=== PATIENT | male | born 1995 | race African-American/Black ===

== ENCOUNTER 2023-10-16 12:03 | Emergency (ER) | payer OTHER ==
[2023-10-16 12:21] VITALS: O2SAT 98
--- NOTE | 2023-10-16 12:27 | ED Physician Documentation ---
History of Present Illness - Stated complaint Stated Complaint: SHOCKED BY ELECTRICITY - Chief complaint Chief Complaint: Burn - History obtained from History obtained from: Patient - Additonal information Additional information: He was working on a growler and got shocked by an electric component to the left hand. He is right-hand dominant. He has no pain or chest pain or syncope. He does say that his arm is tingly. PD PAST MEDICAL HISTORY - Past Medical History Past Medical History: Yes Cardiovascular: None Respiratory: None Neuro: None Endocrine/Autoimmune: None GI: None : None HEENT: None Psych: Anxiety Musculoskeletal: None Derm: None - Past Surgical History Past Surgical History: No - Present Medications Home Medications: Ambulatory Orders Medication Instructions Recorded Confirmed Home Medications Unobtainable 10/16/23 10/16/23 [HOME MEDICATIONS UNOBTAINABLE] - Allergies Allergies/Adverse Reactions: Allergies Allergy/AdvReac Type Severity Reaction Status Date / Time No Known Drug Allergies Allergy Verified 10/16/23 12:11 - Social History Does the pt smoke?: No Smoking Status: Never smoker Does the pt drink ETOH?: No Does the pt have substance abuse?: No - Immunizations Immunizations are current?: Yes - POLST Patient has POLST: No PD ED PE NORMAL - Vitals Vital signs reviewed: Yes - General General: Alert and oriented X 3, No acute distress - Extremities Extremities: Other (He actually has 2 little black dots 1 on the index finger of the left hand and 1 on the ring finger of the left hand. No tenderness and no limited range of motion. 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 Relevant findings are: Rate: Rate (enter#) (62) Rhythm: NSR [place]: Normal Intervals: Normal [place] QRS: Normal Ischemia: Normal ST segments PD Medical Decision Making - ED course ED course: He does not seem significantly injured by the shock and his EKG is normal. Advise close return precautions. Departure - Departure Disposition: 01 Home, Self Care Clinical Impression: Electric shock Condition: Good Record reviewed to determine appropriate education?: Yes Instructions: Shock Electrical First Aid Comments: Your EKG is looking okay, I do not expect any long-term problems from this, but follow-up with your flight surgeon for reevaluation and further treatment. Return for new or worsening symptoms. Forms: PCP List
[2023-10-16 13:13] VITALS: BP 130/88
== END 2023-10-16 13:03 | disposition home or self-care (01) ==
LOC: ED 12:03
DX: T75.4XXA Electrocution, initial encounter (principal); W86.1XXA Exposure to industrial wiring, appliances and electrical machinery, initial encounter; Y93.89 Activity, other specified; Y92.139 Unspecified place military base as the place of occurrence of the external cause; Y99.1 Military activity
CPT/HCPCS: 93005; 99283